=== PATIENT | female | born 1950 | race Caucasian/White ===

== ENCOUNTER 2018-01-26 00:18 | Outpatient (CLI) | payer MEDICARE, OTHER, SELFPAY ==
--- NOTE | 2018-01-26 13:11 | DI.US_ITS ---
SYMPTOM/DIAGNOSIS: UTERINE PAIN, DYSPAREUNIA, N94.10 PELVIC ULTRASOUND: Transabdominal and transvaginal exams were performed. The uterus measures 9.3 by 3.2 by 4.4 cm. and is retroflexed. The myometrium is slightly heterogeneous which may indicate small fibroids. The endometrial stripe measures 3 mm. in thickness. There is a 1 cm. cyst on the left ovary. There is a tubular structure in the let adnexal region which could represent a hydrosalpinx. The right ovary is unremarkable. There is no evidence of free fluid or hydronephrosis. IMPRESSION: Small left ovarian cyst. Small left hydrosalpinx.
--- NOTE | 2018-01-26 13:33 | DI.MAMMO_ITS ---
SYMPTOM/DIAGNOSIS: SCREENING, Z12.31 MAMMOGRAMS: Mammograms were interpreted according to the usual protocol including computer analysis with CAD system, tomosynthesis and C view imaging. Comparison is made with exams from [id number]. The breasts are composed of scattered fibroglandular densities, breast density, Category B. No suspicious masses or suspicious microcalcifications are seen. There has been no significant change. IMPRESSION: Category 1B, negative mammogram. Yearly screening mammography is recommended. [facility] ASSESSMENT OF FINDINGS: Negative. Category 1. Patient will receive a letter notifying them of these results. BI-RADS category B. There are scattered areas of fibroglandular density.
== END 2018-01-26 00:38 ==
PROVIDERS: Visit Provider Nurse Practitioner Women's Health
DX: Z12.31 Encounter for screening mammogram for malignant neoplasm of breast (principal); N94.10 Unspecified dyspareunia; N94.89 Other specified conditions associated with female genital organs and menstrual cycle; N83.292 Other ovarian cyst, left side; N70.11 Chronic salpingitis
CPT/HCPCS: 77063; 77067; 76830; 76856

== ENCOUNTER 2018-03-10 09:47 | Outpatient (CLI) | payer MEDICARE, OTHER, SELFPAY ==
[2018-03-10 10:56] LABS: HCT 42.9 % (36.0-46.0); HGB 14.2 g/dL (12.0-15.5); Mean Corp. HGB Concentration 33.1 g/dL (32.0-36.0); Mean Corpuscular Hemoglobin 29.5 pg (27.0-33.0); Mean Platelet Volume 9.8 fL (8.0-11.0); Platelet Count 220 x1000/uL (130-400); RBC 4.82 m/cumm (4.00-5.20); RBC Distribution Width 13.6 % (11.7-14.6); White Blood Cell Count 7.35 k/cumm (4.4-10.8)
--- NOTE | 2018-03-23 10:42 | W.PM.OP ---
Operative Note Procedure Description: Procedure The patient was brought to the operating room where she was probably identified. She was placed on the operating table in a dorsal supine position and general anesthesia was induced without difficulty. She was then placed in the dorsal lithotomy position then prepped and draped in the normal sterile fashion. A formal time out procedure was then performed confirming patient and procedure. Bell catheter was placed. A uterine manipulator was placed without difficulty. Surgeon changed gloves and attention was then turned to the abdomen where an injection of quarter strength Marcaine was made infraumbilicallly and a 5 mm incision was made subcuticularly. A Veress needle was advanced into the peritoneal cavity without difficulty and the abdomen was insufflated with CO2 gas after confirmation of intraperitoneal location with a drop in pressure and a fluid-filled syringe. After the abdomen was insufflated with CO2 gas the Veres needle as removed and the 5 mm port was passed under direct visualization. 2 further 5 mm ports were placed in the right and left lower quadrant quadrant by first injecting with quarter strength Marcaine a5 mm incision was made in each lower quadrant and the ports were advanced under direct visualization. The patient was then placed in the Trendelenburg position and an inspection of the pelvis ensued with the above findings. Attention was then first addressed to the lysis of adhesions. There were dense adhesions requiring > than 1 hour of dissectionfree to the posterior uterine wall pelvic sidewall bowel to uterus tube to bowel. All of these adhesions were broken down with a series of blunt, sharp and hydro-dissection. Once the uterus, tubes and ovaries were freed from the adhesions and there was good mobilization of these structures; attention was then first turned to the right fallopian tube which was grasped and then using the bipolar LigaSure the tube was dissected along the mesosalpinx to the level of the uterus. Attention was turned to the other side again in a similar fashion the opposite tube was grasped dissected along the mesosalpinx using bipolar cautery. Attention was then turned to the round ligaments and the round ligament on the right was cauterized x3, and the bladder flap created bluntly and sharply to the level up losing bowel ligament which was cauterized x3. The bladder was dissected away from the lower uterine segment and cervix. Then attention was then turned to the right broad ligament which was taken down in a series of cauterizing cut to the level of the uterine vessels the vessels were then skeletonized cauterizing perpendicular to the uterine vessels were cauterized x3 and cut. This was performed in a similar fashion on the opposite side cauterizing the level of the broad ligament down to the level of the uterine vessels. Vessels were skeletonized and transversely cauterized x3 the upper paracervical tissue was taken down serially cauterized and cut the cardinal ligaments were cauterized and cut x2 the pelvis was irrigated hemostasis was confirmed and attention was then turned to the vaginal portion of the hysterectomy. The uterine manipulator was then removed. A short posterior weighted speculum was placed posteriorly and extends retractor. Cervix was visualized clasped with single tooth tenaculum and the cervix was then injected with quarter strength Marcaine in a paracervical fashion. The cervix was then cauterized in a circumferential fashion with Bovie cautery and the vaginal tissue was dissected off of the cervix sharply using the Zamora scissors. The posterior peritoneum was entered sharply and tagged with 0 Vicryl then anteriorly the vesico-uterine flexion was found and dissected the anterior peritoneum entered without difficulty. With the bladder behind the retractor and out of the surgical field, the remainder of the paracervical tissues were dissected with series of cross clamping with curved Henhey clamps, cut and suture ligated with 0 Vicryl.The uterus was then delivered and removed vaginally. The pedicles were inspected and found to be hemostatic. Attention was then turned to the cystocele repair lateral aspects of the anterior vagina was grasped bilaterally with Kockher clamps and midline anterior vaginal mucosa was injected with 1% lidocaine with epi using the Metzenbaum scissors the vaginal mucosa was underlmined and dissected in a vertical fashion to level 1 mm below the urethra. The vaginal mucosa was dissected off the vesicopubic fascia and was reapproximated with 2-0 Vicryl interrupted fashion x2. The vaginal mucosa was trimmed and closed with 0 Vicryl in a running fashion. The vaginal cuff was closed with 0 Vicryl in a running locked fashion and a vaginal pack of Kerlix with Premarin cream was then placed the Bell was left in situ. The sponge, lap, needle counts were correct x2 and the patient was taken to recovery in stable condition.
== END 2018-03-10 10:07 ==
PROVIDERS: PCP Nurse Practitioner Family; Visit Provider Obstetrics & Gynecology
DX: N70.11 Chronic salpingitis (principal); N81.10 Cystocele, unspecified; N83.202 Unspecified ovarian cyst, left side; Z01.818 Encounter for other preprocedural examination
CPT/HCPCS: 36415; 85027; 86850; 86900; 86901

== ENCOUNTER 2018-03-11 06:05 | Inpatient (IN) | payer MEDICARE, OTHER, SELFPAY ==
--- NOTE | 2018-03-10 10:43 | NUR.NOTE ---
Nursing Note: 03/10/18 Patient did not see anesthesia, apparently no one available and the patient could not wait. Anesthesia SUPERINTENDENT LOGGING Estefania duarte.
[2018-03-11] VITALS (14 sets, daily range): BP systolic 52–164; BP diastolic 33–96; PULSE 60–78; RESP 8–19; TEMP 36.2–37.5; O2SAT 92–98
[2018-03-11] MEDS: Lactated Ringers 1,000 ML 125 ML IV ×3 (07:17→16:57)
--- NOTE | 2018-03-11 08:30 | ROE_ITS ---
Date of service: 03/11/18 Time of Service: 12:52 Operative Note DATE OF PROCEDURE: 03/11/18 PRE-OP DIAGNOSIS: bilateral hydrosalpignx,pelvic pain, cystocele POST-OP DIAGNOSIS: same (extensive adhesions ) PROCEDURE: Laparoscopic assisted vaginal hysterectomy , extensive > 1 hour lysis of pelvic adhesions, bilateral salpingectomy , RSO anterior colporraphy, cystoscopy Intraoperative consult Dr. Kilpatrick General Surgery liver cyst right lobe: Recommendations Abdominal CT with contrast to characterize cyst and referral GI surgery [facility] [place] [place] SURGEON: Renetta Varghese PARK WARDEN: Viktoria Triana ANESTHESIA: GETA and other (intrathecal) ESTIMATED BLOOD LOSS: 300 PATHOLOGY: other (uterus cervix bilateral fallopian tubes segment right ovary vaginal mucosa) COMPLICATIONS: None Patient was transported to: PACU Patient's condition: stable Implants: none Indications: bilateral hydrosalpignx, pelvic pain dysparunia Findings: Bilateral hydrosalpingx, extensive pelvic adhesions between ovaries, tubes, obileration posterior cul de sac large cyst of right lobe of liver Operative Note Procedure Description: Procedure The patient was brought to the operating room where she was probably identified. She was placed on the operating table in a dorsal supine position and general anesthesia was induced without difficulty. She was then placed in the dorsal lithotomy position then prepped and draped in the normal sterile fashion. A formal time out procedure was then performed confirming patient and procedure. Bell catheter was placed. A uterine manipulator was placed without difficulty. Surgeon changed gloves and attention was then turned to the abdomen where an injection of quarter strength Marcaine was made infraumbilicallly and a 5 mm incision was made subcuticularly. A Veress needle was advanced into the peritoneal cavity without difficulty and the abdomen was insufflated with CO2 gas after confirmation of intraperitoneal location with a drop in pressure and a fluid-filled syringe. After the abdomen was insufflated with CO2 gas the Veres needle as removed and the 5 mm port was passed under direct visualization. 2 further 5 mm ports were placed in the right and left lower quadrant quadrant by first injecting with quarter strength Marcaine a5 mm incision was made in each lower quadrant and the ports were advanced under direct visualization. The patient was then placed in the Trendelenburg position and an inspection of the pelvis ensued with the above findings. Attention was then first addressed to the lysis of adhesions. There were dense adhesions requiring > than 1 hour of dissectionfree to the posterior uterine wall pelvic sidewall bowel to uterus tube to bowel. All of these adhesions were broken down with a series of blunt, sharp and hydro-dissection. Once the uterus, tubes and ovaries were freed from the adhesions and there was good mobilization of these structures; attention was then first turned to the right fallopian tube which was grasped and then using the bipolar LigaSure the tube was dissected along the mesosalpinx to the level of the uterus. Attention was turned to the other side again in a similar fashion the opposite tube was grasped dissected along the mesosalpinx using bipolar cautery. Attention was then turned to the round ligaments and the round ligament on the right was cauterized x3, and the bladder flap created bluntly and sharply to the level up losing bowel ligament which was cauterized x3. The bladder was dissected away from the lower uterine segment and cervix. Then attention was then turned to the right broad ligament which was taken down in a series of cauterizing cut to the level of the uterine vessels the vessels were then skeletonized cauterizing perpendicular to the uterine vessels were cauterized x3 and cut. This was performed in a similar fashion on the opposite side cauterizing the level of the broad ligament down to the level of the uterine vessels. Vessels were skeletonized and transversely cauterized x3 the upper paracervical tissue was taken down serially cauterized and cut the cardinal ligaments were cauterized and cut x2 the pelvis was irrigated hemostasis was confirmed and attention was then turned to the vaginal portion of the hysterectomy. The uterine manipulator was then removed. A short posterior weighted speculum was placed posteriorly and extends retractor. Cervix was visualized clasped with single tooth tenaculum and the cervix was then injected with quarter strength Marcaine in a paracervical fashion. The cervix was then cauterized in a circumferential fashion with Bovie cautery and the vaginal tissue was dissected off of the cervix sharply using the Zamora scissors. The posterior peritoneum was entered sharply and tagged with 0 Vicryl then anteriorly the vesico-uterine flexion was found and dissected the anterior peritoneum entered without difficulty. With the bladder behind the retractor and out of the surgical field, the remainder of the paracervical tissues were dissected with series of cross clamping with curved Henhey clamps, cut and suture ligated with 0 Vicryl.The uterus was then delivered and removed vaginally. The pedicles were inspected and found to be hemostatic. Attention was then turned to the cystocele repair lateral aspects of the anterior vagina was grasped bilaterally with Kockher clamps and midline anterior vaginal mucosa was injected with 1% lidocaine with epi using the Metzenbaum scissors the vaginal mucosa was underlmined and dissected in a vertical fashion to level 1 mm below the urethra. The vaginal mucosa was dissected off the vesicopubic fascia and was reapproximated with 2-0 Vicryl interrupted fashion x2. The vaginal mucosa was trimmed and closed with 0 Vicryl in a running fashion. The vaginal cuff was closed with 0 Vicryl in a running locked fashion and a vaginal pack of Kerlix with Premarin cream was then placed the Bell was left in situ. The sponge, lap, needle counts were correct x2 and the patient was taken to recovery in stable condition.
[2018-03-11] MEDS: Bupivacaine 0.5% Pres-Free 30 ML VIAL (08:40)
[2018-03-11] MEDS: Bupivacaine 0.25% Pres-Free 10 ML VIAL EP (09:38)
--- NOTE | 2018-03-11 10:45 | UTER_PTH ---
PATIENT: Crystal Romeo LOC: U#:[id number] AGE/SX: 68/F ROOM: RE03/11/[address]: Renetta Varghese MD : [id number] BED: A DIS: 03/13/2018 SPEC #: [id number] RECD: 03/11/18 13:15 STATUS: PAMELA CHISHOLM #: [id number] CHAR: 03/11/18 10:[address]: Renetta Varghese DEPT: Surgical Specimen RECD BY: Claire Mcgowan ENTERED: 03/11/18 13:18 SP TYPE: UTER OTHR DR: Vanessa Coleman Tissues: 1 - UTERUS W OR W/O OVARIES(NOT TUMOR/PROLAPSE) 2 - VAGINAL BIOPSY 3 - OVARY BIOPSY Procedures: GROSS AND MICRO LEVEL 2 GROSS AND MICRO LEVEL 4 GROSS AND MICRO LEVEL 5 Comments: [id number]
[2018-03-11] MEDS: Cellulose,Oxidized 4X8 1 PACKET MC ×2 (12:10→12:19)
[2018-03-11] MEDS: fentaNYL 100 MCG/2 ML VIAL EP (12:39)
--- NOTE | 2018-03-11 12:52 | W.PM.OP ---
Date of service: 03/11/18 Time of Service: 12:52 Operative Note DATE OF PROCEDURE: 03/11/18 PRE-OP DIAGNOSIS: bilateral hydrosalpignx,pelvic pain, cystocele POST-OP DIAGNOSIS: same (extensive adhesions ) PROCEDURE: Laparoscopic assisted vaginal hysterectomy , extensive > 1 hour lysis of pelvic adhesions, bilateral salpingectomy , RSO anterior colporraphy, cystoscopy Intraoperative consult Dr. Kilpatrick General Surgery liver cyst right lobe: Recommendations Abdominal CT with contrast to characterize cyst and referral [place] [facility] [place] Renetta Varghese NURSING INFORMATICS CLINICAL ANALYST: Viktoria Triana ANESTHESIA: GETA and other (intrathecal) ESTIMATED BLOOD LOSS: 300 PATHOLOGY: other (uterus cervix bilateral fallopian tubes segment right ovary vaginal mucosa) COMPLICATIONS: None Patient was transported to: PACU Patient's condition: stable Implants: none Indications: bilateral hydrosalpignx, pelvic pain dysparunia Findings: Bilateral hydrosalpingx, extensive pelvic adhesions between ovaries, tubes, obileration posterior cul de sac large cyst of right lobe of liver
--- NOTE | 2018-03-11 13:00 | ROE_ITS ---
Date of service: 03/11/18 Time of Service: 12:52 Operative Note DATE OF PROCEDURE: 03/11/18 PRE-OP DIAGNOSIS: bilateral hydrosalpignx,pelvic pain, cystocele POST-OP DIAGNOSIS: same (extensive adhesions ) PROCEDURE: Laparoscopic assisted vaginal hysterectomy , extensive > 1 hour lysis of pelvic adhesions, bilateral salpingectomy , RSO anterior colporraphy, cystoscopy Intraoperative consult Dr. Kilpatrick General Surgery liver cyst right lobe: Recommendations Abdominal CT with contrast to characterize cyst and referral GI surgery [facility] [place] SURGEON: Renetta Varghese PLUCK SEPARATOR: Viktoria Triana ANESTHESIA: GETA and other (intrathecal) ESTIMATED BLOOD LOSS: 300 PATHOLOGY: other (uterus cervix bilateral fallopian tubes segment right ovary vaginal mucosa) COMPLICATIONS: None Patient was transported to: PACU Patient's condition: stable Implants: none Indications: bilateral hydrosalpignx, pelvic pain dysparunia Findings: Bilateral hydrosalpingx, extensive pelvic adhesions between ovaries, tubes, obileration posterior cul de sac large cyst of right lobe of liver
--- NOTE | 2018-03-11 15:17 | NUR.NOTE ---
1445-Pt arrived from PACU s/p Lap assisted vaginal hysterectomy, over 1 hour lysis of pelvic adhesions, bilateral salpingectomy, RSO, anterior colporraphy and cystoscopy per handoff report from María Srinivasan MAINTENANCE DEPARTMENT MANAGER. Pt awake and stable upon arrival to room 215 see shift assessment for complete assessment done upon arrival. Pt's spouse, Bird present upon arrival.
[2018-03-11] MEDS: Normal Saline Flush 10 ML SYR IV ×2 (16:57→17:50)
[2018-03-11] MEDS: Ketorolac 30 MG/ML VIAL IVP ×2 (17:50→23:57)
[2018-03-11] MEDS: Docusate Sodium 100 MG CAP PO (20:07)
[2018-03-11] MEDS: diphenhydrAMINE 25 MG CAP PO (21:17)
[2018-03-11] MEDS: diphenhydrAMINE 50 MG/ML VIAL 25 MG IVP (22:53)
[2018-03-12] MEDS: Lactated Ringers 1,000 ML 125 ML IV ×2 (00:26→08:19)
[2018-03-12] MEDS: Ketorolac 30 MG/ML VIAL IVP ×2 (06:23→13:03)
[2018-03-12] MEDS: diphenhydrAMINE 50 MG/ML VIAL 25 MG IVP (06:25)
[2018-03-12 07:40] VITALS: BP 109/64; PULSE 76; RESP 18; TEMP 36.3; O2SAT 94
[2018-03-12 08:19] LABS: HCT 32.6 % (36.0-46.0); HGB 10.5 g/dL (12.0-15.5); Mean Corp. HGB Concentration 32.2 g/dL (32.0-36.0); Mean Corpuscular Hemoglobin 29.5 pg (27.0-33.0); Mean Corpuscular Volume 91.6 fL (80-95); Mean Platelet Volume 9.5 fL (8.0-11.0); Platelet Count 203 x1000/uL (130-400); RBC 3.56 m/cumm (4.00-5.20); RBC Distribution Width 13.6 % (11.7-14.6); White Blood Cell Count 13.67 k/cumm (4.4-10.8)
[2018-03-12] MEDS: Docusate Sodium 100 MG CAP PO ×2 (08:19→20:07)
[2018-03-12 08:27] LABS: Anion Gap 6.7 mmol/L (3-11); BUN 21 mg/dL (7-18); CO2 26.3 mmol/L (21.0-32.0); CREATININE 1.23 mg/dL (0.55-1.02); Calcium 8.1 mg/dL (8.5-10.1); Chloride 101 mmol/L (98-107); Estimated GFR 43.55 (mL/min/1.73m2); Potassium 4.5 mmol/L (3.5-5.1); Sodium 134 mmol/L (136-145)
[2018-03-12 08:43] LABS: Glucose 109 mg/dL (70-100)
[2018-03-12] MEDS: NALBUPHINE 5 MG in Normal Saline 50 ML 100 MG IVPB (08:48)
--- NOTE | 2018-03-12 08:48 | SCONE_ITS ---
Date of service: 03/11/18 Time of Service: 08:30 Assessment and Plan (1) Liver cyst: Current visit: Yes Status: Acute Incidental finding of large liver cyst at the time of surgery. She did have a cholecystectomy in 2009 there is no known mention of liver cyst at that time. I am unable to find an operative note from this facility and I am unsure if she had this at another facility. I do recommend a follow-up CT of the abdomen with IV and p.o. contrast to characterize the cyst appears to be a simple cyst though rather large. Does not have the characteristic color of a hemangioma. Though a CT with liver protocol may be of better will better characterize this determine if it hepatic adenoma versus a hemangioma, or concerning for malignancy. Though by its very size could be causing some morbidity by displacing the stomach or at risk for rupture with abdominal trauma. Therefore, I would also recommend once it has been better characterized that she be referred to hepatobiliary specialist for consideration for further interventions. Thank you for this very interesting consult. History of Present Illness Chief Complaint: Liver Cyst Narrative: I was asked to do an intraoperative consult for incidental finding of a large liver cyst found at time of surgery. Patient was undergoing a laparoscopic assisted vaginal hysterectomy bilateral salpingectomy. Found on inspection of the abdomen was a large what appears to be simple cyst involving a large portion of the left side of the liver. At least what was visible and seemed to involve segments 3 and 4. Most likely segment 2 was involved, and it appeared that the quadrate lobe might be involved also. Review of Systems Review of Systems Unobtainable as patient was intubated for surgery at the time [facility] Social History Smoking/Tobacco Use Status: Never Female Reproductive History Menstrual Date of menopause: 10/08/04 Exam Narrative Exam Narrative: Unobtainable as patient was undergoing surgery at the time liver cyst described in HPI Results Last Vital Signs Temp 37.5 C 03/11/18 23:50 Pulse 78 03/11/18 23:50 Resp 19 03/11/18 23:50 BP 105/67 03/11/18 23:50 Pulse Ox 92 L 03/11/18 23:50 Labs : 03/12/18 08:06 03/12/18 08:06 Laboratory Results - last 24 hr 03/12/18 03/12/18 08:06 08:06 WBC 13.67 H RBC 3.56 L Hgb 10.5 L D Hct 32.6 L D MCV 91.6 MCH 29.5 MCHC 32.2 RDW 13.6 Plt Count 203 MPV 9.5 Sodium 134 L Potassium 4.5 Chloride 101 Carbon Dioxide 26.3 Anion Gap 6.7 BUN 21 H Creatinine 1.23 H Estimated GFR/1.73 m2 43.55 Glucose 109 H Calcium 8.1 L
[2018-03-12 10:00] VITALS: BP 107/66; BP 107/69; BP 125/78; PULSE 70; PULSE 73
--- NOTE | 2018-03-12 10:22 | W.PM.PROGNOT ---
Date of Service Date of service: 03/12/18 Time of Service: 10:23 Assessment and Plan (1) Liver cyst: Current visit: Yes Status: Acute I reviewed the intraoperative finding of a liver cyst on the left lobe of the liver. I discussed the plan to have her follow-up with her PCP. (2) Postop check: Current visit: Yes Status: Acute Postop day 1 after a laparoscopic assisted transvaginal hysterectomy with bilateral salpingectomy and right oophorectomy. Overall she reports feeling well. Plan is to have her Bell removed and to increase her activity level today. The plan is also to begin oral analgesics. I will follow-up this afternoon to discuss possible discharge. Subjective Patient reports: tolerating liquids well, flatus and afebrile Interval history since last seen: Patient states that she had not slept well because of the nursing staff coming in and out of the room. She denies pain during the night. No complaints of nausea. If not out of bed last evening but felt little dizzy when she elevated the head of her bed. Bell catheter remains in place. She is on the impression that she will be discharged home tomorrow. Exam Const General: cooperative, comfortable and no acute distress Orientation: alert, awake and oriented x3 Chest Chest: normal inspection of the chest Resp Effort & Inspection: normal respiratory effort Auscultation: clear to auscultation bilaterally Cardio Palpation: normal PMI Rate: regular rate Rhythm: regular rhythm Heart Sounds: S1 normal and S2 normal GI Inspection: incision (Port sites covered by 2 x 2 and Tegaderm no evidence of ecchymosis) Palpation: soft, no hepatosplenomegaly (No guarding rebound or masses) and other Auscultation: normal bowel sounds Other: I removed the vaginal packing from the vagina. It was stained with dark red blood no evidence of active bleeding. Bell catheter is in place draining clear natalya urine Skin General skin exam: no rashes or lesions noted Lesions: no lesions Extrem General: normal to inspection, full ROM and normal capillary refill Objective Objective Clinical Data: Abnormal lab results 03/12/18 03/12/18 Range/Units 08:06 08:06 WBC 13.67 H (4.4-10.8) k/cumm RBC 3.56 L (4.00-5.20) m/cumm Hgb 10.5 L D (12.0-15.5) g/dL Hct 32.6 L D (36.0-46.0) % Sodium 134 L (136-145) mmol/L BUN 21 H (7-18) mg/dL Creatinine 1.23 H (0.55-1.02) mg/dL Glucose 109 H (70-100) mg/dL Calcium 8.1 L (8.5-10.1) mg/dL Vital Signs Temperature 97.3 F L 03/12/18 07:40 Temperature Source Tympanic 03/12/18 07:40 Pulse 76 03/12/18 07:40 Pulse Rhythm Regular 03/11/18 21:21 Respiratory Rate 18 03/12/18 07:40 Respiratory Effort Non-Labored 03/11/18 21:21 Respiratory Depth Normal 03/11/18 21:21 Respiratory Pattern Normal 03/11/18 21:21 Blood Pressure 109/64 03/12/18 07:40 Pulse Oximetry 94 L 03/12/18 07:40 Respiratory End-tidal CO2 43 03/11/18 13:21 Oxygen Delivery Method Room Air 03/12/18 07:40 Oxygen Flow Rate 0 03/12/18 07:40 Pain Level 0 03/12/18 07:40 Comment 03/11/18 06:10 Intake & Output 03/11/18 03/11/18 03/12/18 11:59 23:59 11:59 Intake Total 50 / 50 2547 / 2547 2985.417 / 2985.417 Output Total 700 / 700 Balance 50 / 50 1847 / 1847 2985.417 / 2985.417 Weight 188 lb 14.978 oz Intake: IV 50 / 50 2157 / 2157 1985.417 / 1985.417 Oral 390 / 390 1000 / 1000 Output: Urine 400 / 400 Estimated Blood Loss 300 / 300 Other: Urine Color Yellow Yellow Urine Appearance Clear Clear Comment NOT EMPTIED IN PACU Emesis Description None Laboratory Results WBC 13.67 k/cumm (4.4-10.8) H 03/12/18 08:06 RBC 3.56 m/cumm (4.00-5.20) L 03/12/18 08:06 Hgb 10.5 g/dL (12.0-15.5) L D 03/12/18 08:06 Hct 32.6 % (36.0-46.0) L D 03/12/18 08:06 MCV 91.6 fL (80-95) 03/12/18 08:06 MCH 29.5 pg (27.0-33.0) 03/12/18 08:06 MCHC 32.2 g/dL (32.0-36.0) 03/12/18 08:06 RDW 13.6 % (11.7-14.6) 03/12/18 08:06 Plt Count 203 x1000/uL (130-400) 03/12/18 08:06 MPV 9.5 fL (8.0-11.0) 03/12/18 08:06 Sodium 134 mmol/L (136-145) L 03/12/18 08:06 Potassium 4.5 mmol/L (3.5-5.1) 03/12/18 08:06 Chloride 101 mmol/L (98-107) 03/12/18 08:06 Carbon Dioxide 26.3 mmol/L (21.0-32.0) 03/12/18 08:06 Anion Gap 6.7 mmol/L (3-11) 03/12/18 08:06 BUN 21 mg/dL (7-18) H 03/12/18 08:06 Creatinine 1.23 mg/dL (0.55-1.02) H 03/12/18 08:06 Estimated GFR/1.73 m2 43.55 (mL/min/1.73m2) 03/12/18 08:06 Glucose 109 mg/dL (70-100) H 03/12/18 08:06 Calcium 8.1 mg/dL (8.5-10.1) L 03/12/18 08:06 Reviewed Pertinent PMH: Yes Objective Narrative Objective Narrative: Satisfactory recovery after laparoscopic assisted vaginal hysterectomy with bilateral salpingectomies and right oophorectomy part. The plan at this time is to remove the Bell catheter advance her activity level and to see if she is ready for discharge. She is on the impression that she would will state till tomorrow.
[2018-03-12 11:40] VITALS: BP 131/80; PULSE 70; RESP 18; TEMP 36.1; O2SAT 97
[2018-03-12] MEDS: diphenhydrAMINE 25 MG CAP PO (13:02)
--- NOTE | 2018-03-12 14:17 | PDOC.CMIN ---
- If Service Date Differs Date of service: 03/12/18 Time of Service: 14:17 Care Management Initial Assess REASON FOR HOSPITALIZATION:: Laparascopic vaginal hysterectomy w/ bilateral salpingectomies and (R) oophorectomy. PAST MEDICAL HISTORY/PAST SURGICAL HISTORY:: Post-cholecystectomy syndrome, Lichen sclerosus et atrophicus of the vulva, Dyspareunia PREVIOUS FUNCTIONAL STATUS/SOCIAL/FAMILY SUPPORTS:: Crystal resides with her Bird in [place], [place]. Crystal states that she has three chidlren, all whom do not reside locally. 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 CURRENT FUNCTIONAL STATUS:: Currently Crystal is sitting up in her chair this morning. She states that she is feeling lightheaded and that her nurse is aware. After our conversation, Crystal requests to return to her bed, which CM notified KOFI Correia, of. ADVANCE DIRECTIVES:: None on file Has patient been provided with information about the portal?: Yes Did the patient sign up for the portal?: No CODE STATUS:: Full Code INSURANCE COVERAGE / FINANCIAL ISSUES:: Medicare, [employer] CURRENT HOME/COMMUNITY SERVICES/EQUIPMENT:: Currently Crystal has no services in the community. She states that she has a lot of medical equipment aned uses the raised toilet seat, as well as the handicap shower. PRIMARY CARE PHYSICIAN:: Vanessa Coleman POTENTIAL DISCHARGE NEEDS:: F/U appointment with Dr. Varghese PATIENT/FAMILY EDUCATION NEEDS:: Review DC instructions, any limitations, and ongoing DC planning discussion. Discuss 'Ask Me Three' ANTICIPATED BARRIERS TO DISCHARGE:: None identified at this time. TRANSPORTATION:: Via private vehicle with Bird PLAN:: Crystal will return home with no anticipated services, she will F/U with Dr. Varghese and plan of care as prescribed. Crystal's Bird will transport when ready.
--- NOTE | 2018-03-12 14:34 | INITIAL_ITS ---
- If Service Date Differs Date of service: 03/12/18 Time of Service: 14:17 Care Management Initial Assess REASON FOR HOSPITALIZATION:: Laparascopic vaginal hysterectomy w/ bilateral salpingectomies and (R) oophorectomy. PAST MEDICAL HISTORY/PAST SURGICAL HISTORY:: Post-cholecystectomy syndrome, Lichen sclerosus et atrophicus of the vulva, Dyspareunia PREVIOUS FUNCTIONAL STATUS/SOCIAL/FAMILY SUPPORTS:: Crystal resides with her Bird in [place], [place]. Crystal states that she has three chidlren, all whom do not reside locally. 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 CURRENT FUNCTIONAL STATUS:: Currently Crystal is sitting up in her chair this morning. She states that she is feeling lightheaded and that her nurse is aware. After our conversation, Crystal requests to return to her bed, which CM notified KOFI Correia, of. ADVANCE DIRECTIVES:: None on file Has patient been provided with information about the portal?: Yes Did the patient sign up for the portal?: No CODE STATUS:: Full Code INSURANCE COVERAGE / FINANCIAL ISSUES:: Medicare, [employer] CURRENT HOME/COMMUNITY SERVICES/EQUIPMENT:: Currently Crystal has no services in the community. She states that she has a lot of medical equipment aned uses the raised toilet seat, as well as the handicap shower. PRIMARY CARE PHYSICIAN:: Vanessa Coleman POTENTIAL DISCHARGE NEEDS:: F/U appointment with Dr. Varghese PATIENT/FAMILY EDUCATION NEEDS:: Review DC instructions, any limitations, and ongoing DC planning discussion. Discuss 'Ask Me Three' ANTICIPATED BARRIERS TO DISCHARGE:: None identified at this time. TRANSPORTATION:: Via private vehicle with Bird PLAN:: Crystal will return home with no anticipated services, she will F/U with Dr. Varghese and plan of care as prescribed. Crystal's Bird will transport when ready.
--- NOTE | 2018-03-12 15:47 | PGE_ITS ---
Date of Service Date of service: 03/12/18 Time of Service: 15:43 Assessment and Plan (1) Postop check: Current visit: Yes Status: Acute Patient reluctant to be discharged home today plan to discharge in the morning. Assist patient with ADLs and ambulation and follow pain control tonight. Subjective Patient reports: still having pain, tolerating a regular diet and flatus Interval history since last seen: Follow-up postop visit with the patient from earlier today she was started on oral narcotics and nonsteroidal anti- inflammatories plan is to advance her diet and to administer her usual doses of cholestyramine. She has reports of feeling lightheaded when sitting up in bed or getting out of bed to the bathroom. Patient is reluctant to return to home this evening the plan is to discharge her in the morning and to assist her with ADLs this evening. Exam Const General: cooperative and no acute distress Nutritional Appearance: average body habitus Orientation: alert, awake and oriented x3 Resp Effort & Inspection: normal respiratory effort GI Inspection: incision (Port sites covered by 2 x 2 and Tegaderm no evidence of ecchymosis) Palpation: soft, no hepatosplenomegaly (No guarding rebound or masses) and other Auscultation: normal bowel sounds Extrem General: normal to inspection Objective Objective Clinical Data: Abnormal lab results 03/12/18 03/12/18 Range/Units 08:06 08:06 WBC 13.67 H (4.4-10.8) k/cumm RBC 3.56 L (4.00-5.20) m/cumm Hgb 10.5 L D (12.0-15.5) g/dL Hct 32.6 L D (36.0-46.0) % Sodium 134 L (136-145) mmol/L BUN 21 H (7-18) mg/dL Creatinine 1.23 H (0.55-1.02) mg/dL Glucose 109 H (70-100) mg/dL Calcium 8.1 L (8.5-10.1) mg/dL Vital Signs Temperature 97.0 F L 03/12/18 11:40 Temperature Source Tympanic 03/12/18 11:40 Pulse 70 03/12/18 11:40 Pulse Rhythm Regular 03/11/18 21:21 Respiratory Rate 18 03/12/18 11:40 Respiratory Effort Non-Labored 03/11/18 21:21 Respiratory Depth Normal 03/11/18 21:21 Respiratory Pattern Normal 03/11/18 21:21 Blood Pressure 131/80 03/12/18 11:40 Pulse Oximetry 97 03/12/18 11:40 Respiratory End-tidal CO2 43 03/11/18 13:21 Oxygen Delivery Method Room Air 03/12/18 11:40 Oxygen Flow Rate 0 03/12/18 11:40 Pain Level 2 03/12/18 11:40 Comment 03/11/18 06:10 Intake & Output 03/11/18 03/12/18 03/12/18 23:59 11:59 23:59 Intake Total 2547 / 2547 3645.417 / 3645.417 240 / 240 Output Total 700 / 700 Balance 1847 / 1847 3645.417 / 3645.417 240 / 240 Intake: IV 2157 / 2157 1985.417 / 1985.417 Oral 390 / 390 1660 / 1660 240 / 240 Output: Urine 400 / 400 Estimated Blood Loss 300 / 300 Other: Urine Color Yellow Urine Appearance Clear Comment NOT EMPTIED IN PACU Emesis Description None Laboratory Results WBC 13.67 k/cumm (4.4-10.8) H 03/12/18 08:06 RBC 3.56 m/cumm (4.00-5.20) L 03/12/18 08:06 Hgb 10.5 g/dL (12.0-15.5) L D 03/12/18 08:06 Hct 32.6 % (36.0-46.0) L D 03/12/18 08:06 MCV 91.6 fL (80-95) 03/12/18 08:06 MCH 29.5 pg (27.0-33.0) 03/12/18 08:06 MCHC 32.2 g/dL (32.0-36.0) 03/12/18 08:06 RDW 13.6 % (11.7-14.6) 03/12/18 08:06 Plt Count 203 x1000/uL (130-400) 03/12/18 08:06 MPV 9.5 fL (8.0-11.0) 03/12/18 08:06 Sodium 134 mmol/L (136-145) L 03/12/18 08:06 Potassium 4.5 mmol/L (3.5-5.1) 03/12/18 08:06 Chloride 101 mmol/L (98-107) 03/12/18 08:06 Carbon Dioxide 26.3 mmol/L (21.0-32.0) 03/12/18 08:06 Anion Gap 6.7 mmol/L (3-11) 03/12/18 08:06 BUN 21 mg/dL (7-18) H 03/12/18 08:06 Creatinine 1.23 mg/dL (0.55-1.02) H 03/12/18 08:06 Estimated GFR/1.73 m2 43.55 (mL/min/1.73m2) 03/12/18 08:06 Glucose 109 mg/dL (70-100) H 03/12/18 08:06 Calcium 8.1 mg/dL (8.5-10.1) L 03/12/18 08:06
--- NOTE | 2018-03-12 16:18 | CHAPLAIN ---
Crystal was resting in bed when I visited. She said her body has been very tired lately. I explained my role and offered support. Crystal said her had been in to visit and will be returning later today. She was feeling comfortable being here.
[2018-03-12 17:25] VITALS: BP 108/63; PULSE 85; RESP 17; TEMP 36; O2SAT 96
[2018-03-12] MEDS: Ibuprofen 600 MG TAB PO (20:07)
[2018-03-12 20:28] VITALS: BP 111/74; PULSE 87; RESP 18; TEMP 37.6; O2SAT 97
[2018-03-13 00:21] VITALS: BP 108/73; PULSE 85; RESP 16; TEMP 35.7; O2SAT 95
[2018-03-13] MEDS: Ibuprofen 600 MG TAB PO ×2 (00:52→07:57)
[2018-03-13 03:30] VITALS: BP 111/69; PULSE 85; RESP 18; TEMP 36.8; O2SAT 96
[2018-03-13] MEDS: HYDROmorphone 2 MG TAB PO (03:46)
[2018-03-13 07:49] VITALS: BP 120/69; PULSE 90; RESP 18; TEMP 36.6; O2SAT 94
[2018-03-13] MEDS: Docusate Sodium 100 MG CAP PO (07:57)
--- NOTE | 2018-03-13 09:52 | W.PM.PROGNOT ---
Date of Service Date of service: 03/13/18 Time of Service: 09:52 Assessment and Plan (1) Postop check: Current visit: No Status: Acute Patient comfortable and able to perform ADLs. Will discharge to home with follow-up in approximately [address] aVrghese. She was given written and verbal discharge instructions (2) Liver cyst: Current visit: Yes Status: Acute The plan is to have her PCP follow-up regarding the liver cyst in the near future. I recommended recovery from the surgery prior to any additional imaging studies. Subjective Patient reports: feels better, tolerating a regular diet, voiding w/o difficulty, flatus, no bowel movement and afebrile Interval history since last seen: Overnight patient had Bell catheter discontinued was able to void spontaneously. She has been out of bed with assist to the toilet and has no further episodes of lightheadedness or dizziness. She is remained afebrile and her pain has been moderate. She requested one Dilaudid during the night but otherwise has been using nonsteroidal anti-inflammatories. She is aware of the left liver lobe cyst and the findings at the time of surgery. Exam Const General: cooperative and comfortable Orientation: alert, awake and oriented x3 Resp Effort & Inspection: normal respiratory effort Auscultation: clear to auscultation bilaterally Cardio Palpation: normal PMI Rate: regular rate Rhythm: regular rhythm Heart Sounds: S1 normal and S2 normal GI Inspection: incision (All trocar sites inspected and noted to be intact and hemostatic no evidence of ecchymosis or induration) Palpation: soft Auscultation: normal bowel sounds General: deferred Skin General skin exam: no rashes or lesions noted Neuro Gait: normal gait Motor: muscle tone normal throughout Sensory Exam: no sensory deficits noted Objective Objective Clinical Data: Vital Signs Temperature 97.9 F 03/13/18 07:49 Temperature Source Tympanic 03/13/18 07:49 Pulse 90 03/13/18 07:49 Pulse Rhythm Regular 03/13/18 07:45 Respiratory Rate 18 03/13/18 07:49 Respiratory Effort Non-Labored 03/13/18 07:45 Respiratory Depth Normal 03/13/18 07:45 Respiratory Pattern Normal 03/13/18 07:45 Blood Pressure 120/69 03/13/18 07:49 Pulse Oximetry 94 L 03/13/18 07:49 Respiratory End-tidal CO2 43 03/11/18 13:21 Oxygen Delivery Method Room Air 03/13/18 07:49 Oxygen Flow Rate 0 03/13/18 07:49 Pain Level 0 03/13/18 07:57 Comment 03/11/18 06:10 Intake & Output 03/12/18 03/12/18 03/13/18 11:59 23:59 11:59 Intake Total 3645.417 / 3645.417 1290.5 / 1290.5 240 / 240 Output Total 375 / 375 3275 / 3275 1700 / 1700 Balance 3270.417 / 3270.417 -1984.5 / -1984.5 -1460 / -1460 Intake: IV 1985.417 / 0961.627 9741.5 / 1050.5 Oral 1660 / 1660 240 / 240 240 / 240 Output: Urine 375 / 375 3275 / 3275 1700 / 1700 Other: Urine Color Yellow Yellow Yellow Urine Appearance Clear Cloudy Clear Urine Odor None None Comment javed pad with small amount of bloody drainage Small amount of blood on toilet papaer Voiding Methods Toilet Toilet Laboratory Results WBC 13.67 k/cumm (4.4-10.8) H 03/12/18 08:06 RBC 3.56 m/cumm (4.00-5.20) L 03/12/18 08:06 Hgb 10.5 g/dL (12.0-15.5) L D 03/12/18 08:06 Hct 32.6 % (36.0-46.0) L D 03/12/18 08:06 MCV 91.6 fL (80-95) 03/12/18 08:06 MCH 29.5 pg (27.0-33.0) 03/12/18 08:06 MCHC 32.2 g/dL (32.0-36.0) 03/12/18 08:06 RDW 13.6 % (11.7-14.6) 03/12/18 08:06 Plt Count 203 x1000/uL (130-400) 03/12/18 08:06 MPV 9.5 fL (8.0-11.0) 03/12/18 08:06 Sodium 134 mmol/L (136-145) L 03/12/18 08:06 Potassium 4.5 mmol/L (3.5-5.1) 03/12/18 08:06 Chloride 101 mmol/L (98-107) 03/12/18 08:06 Carbon Dioxide 26.3 mmol/L (21.0-32.0) 03/12/18 08:06 Anion Gap 6.7 mmol/L (3-11) 03/12/18 08:06 BUN 21 mg/dL (7-18) H 03/12/18 08:06 Creatinine 1.23 mg/dL (0.55-1.02) H 03/12/18 08:06 Estimated GFR/1.73 m2 43.55 (mL/min/1.73m2) 03/12/18 08:06 Glucose 109 mg/dL (70-100) H 03/12/18 08:06 Calcium 8.1 mg/dL (8.5-10.1) L 03/12/18 08:06
--- NOTE | 2018-03-13 09:58 | PGE_ITS ---
Date of Service Date of service: 03/13/18 Time of Service: 09:52 Assessment and Plan (1) Postop check: Current visit: No Status: Acute Patient comfortable and able to perform ADLs. Will discharge to home with follow-up in approximately [address] Varghese. She was given written and verbal discharge instructions (2) Liver cyst: Current visit: Yes Status: Acute The plan is to have her PCP follow-up regarding the liver cyst in the near future. I recommended recovery from the surgery prior to any additional imaging studies. Subjective Patient reports: feels better, tolerating a regular diet, voiding w/o difficulty , flatus, no bowel movement and afebrile Interval history since last seen: Overnight patient had Bell catheter discontinued was able to void spontaneously. She has been out of bed with assist to the toilet and has no further episodes of lightheadedness or dizziness. She is remained afebrile and her pain has been moderate. She requested one Dilaudid during the night but otherwise has been using nonsteroidal anti-inflammatories. She is aware of the left liver lobe cyst and the findings at the time of surgery. Exam Const General: cooperative and comfortable Orientation: alert, awake and oriented x3 Resp Effort & Inspection: normal respiratory effort Auscultation: clear to auscultation bilaterally Cardio Palpation: normal PMI Rate: regular rate Rhythm: regular rhythm Heart Sounds: S1 normal and S2 normal GI Inspection: incision (All trocar sites inspected and noted to be intact and hemostatic no evidence of ecchymosis or induration) Palpation: soft Auscultation: normal bowel sounds General: deferred Skin General skin exam: no rashes or lesions noted Neuro Gait: normal gait Motor: muscle tone normal throughout Sensory Exam: no sensory deficits noted Objective Objective Clinical Data: Vital Signs Temperature 97.9 F 03/13/18 07:49 Temperature Source Tympanic 03/13/18 07:49 Pulse 90 03/13/18 07:49 Pulse Rhythm Regular 03/13/18 07:45 Respiratory Rate 18 03/13/18 07:49 Respiratory Effort Non-Labored 03/13/18 07:45 Respiratory Depth Normal 03/13/18 07:45 Respiratory Pattern Normal 03/13/18 07:45 Blood Pressure 120/69 03/13/18 07:49 Pulse Oximetry 94 L 03/13/18 07:49 Respiratory End-tidal CO2 43 03/11/18 13:21 Oxygen Delivery Method Room Air 03/13/18 07:49 Oxygen Flow Rate 0 03/13/18 07:49 Pain Level 0 03/13/18 07:57 Comment 03/11/18 06:10 Intake & Output 03/12/18 03/12/18 03/13/18 11:59 23:59 11:59 Intake Total 3645.417 / 3645.417 1290.5 / 1290.5 240 / 240 Output Total 375 / 375 3275 / 3275 1700 / 1700 Balance 3270.417 / 3270.417 -1984.5 / -1984.5 -1460 / -1460 Intake: IV 1985.417 / 9179.309 7760.5 / 1050.5 Oral 1660 / 1660 240 / 240 240 / 240 Output: Urine 375 / 375 3275 / 3275 1700 / 1700 Other: Urine Color Yellow Yellow Yellow Urine Appearance Clear Cloudy Clear Urine Odor None None Comment javed pad with small amount of bloody drainage Small amount of blood on toilet papaer Voiding Methods Toilet Toilet Laboratory Results WBC 13.67 k/cumm (4.4-10.8) H 03/12/18 08:06 RBC 3.56 m/cumm (4.00-5.20) L 03/12/18 08:06 Hgb 10.5 g/dL (12.0-15.5) L D 03/12/18 08:06 Hct 32.6 % (36.0-46.0) L D 03/12/18 08:06 MCV 91.6 fL (80-95) 03/12/18 08:06 MCH 29.5 pg (27.0-33.0) 03/12/18 08:06 MCHC 32.2 g/dL (32.0-36.0) 03/12/18 08:06 RDW 13.6 % (11.7-14.6) 03/12/18 08:06 Plt Count 203 x1000/uL (130-400) 03/12/18 08:06 MPV 9.5 fL (8.0-11.0) 03/12/18 08:06 Sodium 134 mmol/L (136-145) L 03/12/18 08:06 Potassium 4.5 mmol/L (3.5-5.1) 03/12/18 08:06 Chloride 101 mmol/L (98-107) 03/12/18 08:06 Carbon Dioxide 26.3 mmol/L (21.0-32.0) 03/12/18 08:06 Anion Gap 6.7 mmol/L (3-11) 03/12/18 08:06 BUN 21 mg/dL (7-18) H 03/12/18 08:06 Creatinine 1.23 mg/dL (0.55-1.02) H 03/12/18 08:06 Estimated GFR/1.73 m2 43.55 (mL/min/1.73m2) 03/12/18 08:06 Glucose 109 mg/dL (70-100) H 03/12/18 08:06 Calcium 8.1 mg/dL (8.5-10.1) L 03/12/18 08:06
--- NOTE | 2018-03-13 13:38 | PDOC.CMDIS ---
- If Service Date Differs Date of service: 03/13/18 Time of Service: 13:38 LACE Index Scoring Tool - Questions: Length of Stay (in days): 2 Acuity (Admit via E.D.?): No E.D. Visits: 0 - Answers: Total Score: 2 Risk of Readmission: Low Risk Care Management Discharge Reason for Hospitalization: Laparascopic vaginal hysterectomy w/ bilateral salpingectomies and (R) oophorectomy. Discharge Plan: Crystal will return home today with no services. She will F/U with Dr. Varghese and plan of care as prescribed. [facility] to transport her home. Patient/Family Education Needs: Review DC instructions, any limitations, and discuss 'Ask Me Three'
== END 2018-03-13 12:33 | disposition home or self-care (01) | DRG 743 ==
LOC: PDS 08:44 → MS 16:01
PROVIDERS: Obstetrics & Gynecology Gynecology; Admitting Provider Obstetrics & Gynecology; PCP Speech-Language Pathologist; Visit Provider Obstetrics & Gynecology
PROC: 0UT9FZZ Resection of Uterus, Via Natural or Artificial Opening With Percutaneous Endoscopic Assistance (ICD-10-PCS; CPT 58552; principal; 2018-03-11 07:45)
PROC: 0UT9FZZ Resection of Uterus, Via Natural or Artificial Opening With Percutaneous Endoscopic Assistance (ICD-10-PCS; CPT 57260; 2018-03-11 07:45)
PROC: 0TJB8ZZ Inspection of Bladder, Via Natural or Artificial Opening Endoscopic (ICD-10-PCS; CPT 52000; 2018-03-11 07:45)
DX: N70.11 Chronic salpingitis (principal); N81.10 Cystocele, unspecified; N73.6 Female pelvic peritoneal adhesions (postinfective); N88.8 Other specified noninflammatory disorders of cervix uteri; N72 Inflammatory disease of cervix uteri; N80.0 Endometriosis of uterus; N83.8 Other noninflammatory disorders of ovary, fallopian tube and broad ligament; K76.89 Other specified diseases of liver
CPT/HCPCS: 58552; 57240; 58660; 36415; 80048; 85027; 88305; 99221; 99224; 99231; 99252; 88302; 88307; J0131; J0690; J1100; J1200; J1885; J2001; J2405; J3010; J3490

== ENCOUNTER 2018-03-24 15:16 | Outpatient (CLI) | payer MEDICARE, OTHER, SELFPAY ==
[2018-03-24 16:01] LABS: HCT 37.7 % (36.0-46.0); HGB 12.3 g/dL (12.0-15.5); Mean Corp. HGB Concentration 32.6 g/dL (32.0-36.0); Mean Corpuscular Hemoglobin 29.5 pg (27.0-33.0); Mean Corpuscular Volume 90.4 fL (80-95); Mean Platelet Volume 9.8 fL (8.0-11.0); Platelet Count 352 x1000/uL (130-400); RBC 4.17 m/cumm (4.00-5.20); RBC Distribution Width 13.5 % (11.7-14.6)
== END 2018-03-24 15:36 ==
PROVIDERS: PCP Speech-Language Pathologist; Visit Provider Obstetrics & Gynecology
DX: N94.19 Other specified dyspareunia (principal); T81.40XA Infection following a procedure, unspecified, initial encounter; N90.4 Leukoplakia of vulva
CPT/HCPCS: 36415; 85027; 86850; 86900; 86901

== ENCOUNTER 2018-03-30 00:44 | Outpatient (CLI) | payer MEDICARE, OTHER, SELFPAY ==
[2018-03-30] MEDS: Breeza Beverage 473 ML BTL PO ×2 (09:35→09:37)
[2018-03-30] MEDS: Omnipaque 350 MG/ML 50 ML BTL PO (09:37)
[2018-03-30 09:55] LABS: CREATININE 0.85 mg/dL (0.55-1.02)
--- NOTE | 2018-03-30 11:00 | DI.CT_ITS ---
SYMPTOMS/DIAGNOSIS: LARGE LIVER CYST, POSTOP PAIN, ? SURGICAL COMPLICATION ABDOMINAL AND PELVIC CT: CT examination of the abdomen and pelvis was performed with a bolus infusion of 100 cc of Omnipaque 350 and ingestion of dilute barium. Images obtained through the lung bases are unremarkable. Note is made of a previous cholecystectomy and a large multilobed left lobe hepatic cyst measuring up to about 13 cm in diameter. The spleen is unremarkable in appearance. No biliary dilatation is seen. The pancreas is unremarkable. Adrenals and kidneys appear normal except for presumed bilateral peripelvic renal cysts. Abdominal aorta is of normal diameter and no major vascular abnormalities seen. No abdominal or pelvic adenopathy seen. Appendix appears normal. No evidence of diverticulitis or bowel obstruction. There is fat edema in the pelvis. The patient has reportedly had a recent hysterectomy at an unspecified date. There is an irregular gas collection measuring up to about 3 cm in diameter with some surrounding fluid and fat edema. No gross thick-walled abscess identified. No additional findings. CONCLUSION: Fluid and gas collection in the pelvis without a gross thick-walled abscess. No free intraperitoneal air seen. Findings may represent postoperative infection; localized bowel perforation not entirely excluded. Depending on the exact timing of the recent hysterectomy, the findings could also represent unabsorbed gas introduced at the time of the surgical procedure.
[2018-03-30] MEDS: Omnipaque 350 MG/ML 100 ML BTL IJ (11:15)
== END 2018-03-30 01:04 ==
PROVIDERS: Radiology Diagnostic Ultrasound; PCP Speech-Language Pathologist; Visit Provider Obstetrics & Gynecology
DX: K76.89 Other specified diseases of liver (principal); G89.18 Other acute postprocedural pain; Z13.89 Encounter for screening for other disorder
CPT/HCPCS: 36415; 74177; 82565; J3490; Q9967

== ENCOUNTER 2018-04-09 13:52 | Outpatient (REF) | payer MEDICARE, OTHER, SELFPAY | END 2018-04-09 14:12 | LOC: LBN 13:52 | PROVIDERS: PCP Nurse Practitioner Family; Visit Provider Obstetrics & Gynecology | DX: N89.8 Other specified noninflammatory disorders of vagina (principal) | CPT/HCPCS: 87480; 87510; 87660 ==

== ENCOUNTER → 2018-06-26 09:29 | Outpatient (BNVA) | payer MEDICARE, OTHER, SELFPAY | PROVIDERS: PCP Speech-Language Pathologist; Referring Provider Speech-Language Pathologist; Visit Provider Surgery | DX: K57.32 Diverticulitis of large intestine without perforation or abscess without bleeding (principal) | CPT/HCPCS: 99213 ==

== ENCOUNTER 2019-04-16 13:46 | Outpatient (REF) | payer MEDICARE, OTHER, SELFPAY | END 2019-04-16 14:06 | LOC: LBN 13:46 | PROVIDERS: PCP Speech-Language Pathologist; Visit Provider Nurse Practitioner Family | DX: R39.15 Urgency of urination (principal) | CPT/HCPCS: 87086 ==

== ENCOUNTER 2019-05-17 01:23 | Outpatient (CLI) | payer MEDICARE, OTHER, SELFPAY ==
--- NOTE | 2019-05-17 12:18 | DI.MAMMO_ITS ---
EXAM: MG MAMMO SCREENING CLINICAL HISTORY: screening. TECHNIQUE: Full field digital CC and MLO mammographic images were obtained with 3D tomosynthesis and utilizing computer aided detection (CAD). COMPARISON: 2009 through 2017 FINDINGS: Breast Density - Category B - Scattered areas of fibroglandular density Masses/Architectural Distortion: None seen. Microcalcifications: No suspicious pleomorphic-type calcifications are seen. Skin Thickening/Nipple Retraction: None. Axilla: Unremarkable. IMPRESSION: 1. BI-RADS category 1, negative. No significant interval change with no specific features of maligna ncy noted. 2. Unless there is more urgent need, screening mammography is recommended, as per [employer] guidelines. A negative radiographic report should not delay biopsy if a dominant or clinically suspicious mass is present. Up to ten percent of cancers are not identified on mammography. A negative report may reinforce clinical impression. Adenosis and dense breasts may obscure an underlying neoplasm. False positive reports average 6 to 10%. Patient will receive a letter notifying them of these results.
== END 2019-05-17 01:43 ==
PROVIDERS: PCP Speech-Language Pathologist; Visit Provider Nurse Practitioner Family
DX: Z12.31 Encounter for screening mammogram for malignant neoplasm of breast (principal)
CPT/HCPCS: 77063; 77067

== ENCOUNTER → 2022-03-06 11:13 | Outpatient (BNVA) | payer MEDICARE, OTHER, SELFPAY | PROVIDERS: PCP Family Medicine; Referring Provider Family Medicine; Visit Provider Surgery | DX: Z12.11 Encounter for screening for malignant neoplasm of colon (principal) ==

== ENCOUNTER 2022-03-21 10:55 | Day surgery (SDC) | payer MEDICARE, OTHER, SELFPAY ==
--- NOTE | 2022-03-21 05:24 | W.PM.DSUDISC ---
Date of service: 03/21/22 Time of Service: 11:53 Discharge Plan Disposition Patient Disposition: Home Condition: Good Discharge Details Reason For Visit: Routine health maintenance screening colonoscopy Attending Provider: Jose Waddell Primary Care Provider: Dariela Diallo Home Meds and New Rx's Prescriptions: Continued ibuprofen 400 mg tablet 400 mg PO BID PRN cholestyramine (with sugar) 4 gram powder 4 gm PO BID clobetasol 0.05 % ointment 15 gm Topical HS twice weekly Qty: 15 3RF Rx Instructions: Apply a small amount to affected area HS twice weekly acetaminophen 500 mg capsule 500 mg PO Q6H PRN celecoxib 200 mg capsule 200 mg PO DAILY PRN Preparation H (Witch Belgica) 20 % pads, medicated topical hydrochlorothiazide 25 mg tablet 25 mg PO DAILY cholecalciferol (vitamin D3) 50 mcg (2,000 unit) capsule 50 mcg PO DAILY losartan 50 mg tablet 50 mg PO DAILY Discontinued polyethylene glycol 3350 17 gram/dose powder 238 g PO ONCE Qty: 238 0RF Rx Instructions: take per colonoscopy instructions bisacodyl [Dulcolax (bisacodyl)] 5 mg tablet,delayed release (DR/EC) 5 mg PO ONCE Qty: 4 0RF Rx Instructions: take per colonoscopy instructions Discharge Instructions Instructions: Hemorrhoids (GEN), Diverticulosis (DC), Diverticulosis Diet (GEN) Additional Instructions: 1. If tolerated, consume a soft, low fiber diet for 1-2 days. 2[address] Do not drive, drink alcohol, operate machinery, make critical decisions, or do activities that require coordination or balance for 24 hours. 3. Because air was put into your colon during the procedure, expelling air from your rectum (passing gas or farting) is normal. 4. You may not have a bowel movement for 1-3 days because of the colonoscopy prep. This is normal. 5. Go directly to the emergency room if you notice any of the following: Develop chills (warm to touch), or if you have a thermometer and your temperature is above 101 Difficulty breathing or difficultly swallowing Persistent vomiting Severe abdominal pain, other than gas cramps Severe chest pain Black, tarry stools Any bleeding ? exceeding one tablespoon 6. Call your physician if the site where your intravenous was started becomes red, swollen, painful, and warm to touch. 7. Your physician has reviewed your pre-procedure medications. Please continue to take those medications as previously ordered. You will be given specific information/education regarding any changes to your medications before leaving. Activity:: Activity as Tolerated Diet:: As Tolerated Discharge Orders Discharge Orders: Discharge Order (Routine); Ordered 03/21/22 Ordered By: Jose Waddell DS: Diagnosis Discharge Diagnosis (1) Screening for colon cancer: Status: Acute Asessment and Plan: Your screening colonoscopy was normal. You have some internal hemorrhoids, and some diverticulosis. The recommendation for screening colonoscopy would be to follow-up in 10 years if you desire.
--- NOTE | 2022-03-21 05:26 | W.COLOREPORT ---
Date of service: 03/21/22 Time of Service: 12:47 Colonoscopy Report Date of procedure: 03/21/22 Pre-op diagnosis general: Routine health maintenance screening colonoscopy Post-op diagnosis procedure note: same Procedure: colonoscopy Surgeon: Jose Waddell Anesthesia Type: General:No Airway Estimated blood loss (mL): 0 Pathology: none sent Complications: None Disposition: same day Indications: Crystal is a 72-year-old woman here for her next screening colonoscopy. Prep: Miralax/Dulcolax Procedure Start Time: 12:13 Procedure End Time: 12:24 Retraction Time: 7 Findings: Grade 2 internal hemorrhoids, occasional diverticulosis of the sigmoid colon. Procedure Description: After the induction of monitored anesthetic care, and with the patient in left lateral decubitus position, I began by performing an external anorectal exam.? Perineum and skin were normal, as was the anal verge.? There was no evidence of external hemorrhoids.? Next, I performed a digital rectal exam.? I did not appreciate any abnormal findings.? Next, I advanced a colonoscope into the rectal vault.? I performed retroflexion.? There are large internal hemorrhoids.? Using insufflation, I then advanced the colonoscope beyond the rectal folds and into the sigmoid colon before advancing towards the cecum.? The quality of the prep was excellent.? There were occasional sigmoid diverticula. The scope was noted to be in the cecum by identification of the ileocecal valve and appendiceal orifice.? I then began withdrawing the colonoscope using repeated irrigation as necessary for full evaluation of the colonic mucosa. ?Once the scope was withdrawn to the level of the rectum, great care was taken to examine portions of the rectal folds.? Finally, the scope was withdrawn and the patient was brought to the same-day surgery recovery unit as the anesthetic wore off. ?The findings and instructions were shared with the patient prior to discharge.
[2022-03-21 11:30] VITALS: BP 147/83; PULSE 87; RESP 16; TEMP 36.5; O2SAT 94
[2022-03-21] MEDS: Lactated Ringers 1,000 ML 80 ML IV (11:30)
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
[2022-03-21 11:56] VITALS: BMI 33.2
[2022-03-21 12:33] VITALS: BP 111/63; PULSE 74; RESP 16; TEMP 36.2; O2SAT 100
[2022-03-21 13:01] VITALS: BP 114/75; PULSE 68; RESP 16; TEMP 36.3; O2SAT 93
--- NOTE | 2022-03-21 13:04 | W.ANESPOSTOP ---
Postoperative Evaluation Date, Time and Location Date Performed: 03/21/22 Time Performed: 12:48 Patient Location: Day Surgery Unit Vital Signs Most Recent Imported Vital Signs: Most Recent Vital Signs Temp Pulse Resp BP Pulse Ox 36.3 C L 68 16 114/75 93 03/21/22 13:01 03/21/22 13:01 03/21/22 13:01 03/21/22 13:01 03/21/22 13:01 Pain Score Most Recent Pain Score: Most Recent Pain Score Pain Level 0 03/21/22 13:01 Assessment Mental Status: Awake (Alert & Oriented to Patient Baseline) Airway and Respiratory Function: Patent airway with normal (patient baseline) respiratory exam Cardiovascular Function: Hemodynamically Stable Hydration Status: Adequately Hydrated Nausea & Vomiting: No Nausea or Vomiting Pain: Pt. Denies Any Pain Peripheral Nerve Block: Patient did not receive a nerve block
== END 2022-03-21 13:18 | disposition home or self-care (01) ==
PROVIDERS: PCP Family Medicine; Visit Provider Surgery
PROC: 0DJD8ZZ Inspection of Lower Intestinal Tract, Via Natural or Artificial Opening Endoscopic (ICD-10-PCS; CPT 45378; principal; 2022-03-21 11:15)
DX: Z12.11 Encounter for screening for malignant neoplasm of colon (principal); K57.30 Diverticulosis of large intestine without perforation or abscess without bleeding; K64.1 Second degree hemorrhoids
CPT/HCPCS: G0121